=== PATIENT | female | born 1945 | race Caucasian/White ===

== ENCOUNTER 2016-10-23 03:56 | Emergency (ER) | payer OTHER, MEDICARE ==
[~2016-10-23] VITALS: Ht 162.6 cm; Wt 58.2 kg
[~2016-10-23 03:56] MED LIST: ACIDOPHILUS100 MG; AMBIEN10 MG PO; ASPIR 8181 M1 PO; ASPIR-TRIN325 M1 PO; BENICAR HCT 201 EACH PO; BENICAR HCT1 TABLE2 PO; BENICAR20 MG PO; BIOTIN5 MG; BUDEPRION SR100 MG PO; CARDURA2 M1 G-TUBE; CENTRUM CARD1 TABLET PO; CIPRO500 MG PO; COLACE50 MG PO; COZAAR100 MG PO; Cardura PO; DILAUDID4 MG PO; FLAGYL500 MG PO; FLORASTOR250 MG PO; HYDROCODON-ACE1 EAC8 PO; HYZAAR 100-21 TABLET PO; LEVAQUIN500 MG PO; LIDODERM 5% P1 PATCH TP; LIPITOR20 MG PO; LOPRESSOR25 MG PO; LORTAB,VICODIN15 ML PO; NASONEX17 GM NS; NITROQUICK0.4 MG SL; NITROSTAT,NITR0.4 M1 SL; PERCOCET 10-651 EACH PO; PERCOCET 10/1 TABLE1 PO; PLAVIX75 MG PO; PREVACID30 MG PO; PROMETHAZINE HC25 M1 PO; PROTONIX40 MG PO; ST. JOSEPH ASPI81 MG PO; TOPROL XL100 MG PO; TOPROL XL50 MG PO; VIT C; WELLBUTRIN100 MG PO; Wellbutrin SR PO; XANAX0.5 MG PO; Xanax PO
[2016-10-23 04:33] LABS: HEMATOCRIT 37.1 % (36.0-46.0); MCH 29.9 PG (29.0-34.0); MCHC 32.6 G/DL (30.0-36.0); MCV 91.6 FL (83-99); MEAN PLAT.VOLUME 9.2 uM^3 (9.5-12.4); PLATELET COUNT 277 K/uL (156-360); RBC DIS.WIDTH-SD 40.9 % (39-53); RED BLOOD COUNT 4.05 M/uL (3.80-5.20); WHITE BLOOD COUNT 6.9 K/uL (4.1-10.2)
[2016-10-23 04:43] LABS: CHLORIDE 102 mEq/L (99-109); POTASSIUM 4.4 mEq/L (3.7-5.4); SODIUM 139 mEq/L (136-147)
[2016-10-23 04:45] LABS: GLUCOSE 125 mg/dL (70-99)
[2016-10-23 04:46] LABS: ANION GAP 9 MEQ/L (2-14)
[2016-10-23 04:49] LABS: GFR ESTIMATE (CALCULATED) 47 mL/min/
[2016-10-23 04:50] LABS: UREA NITROGEN (BUN) 18 mg/dL (9-23)
[2016-10-23 04:56] LABS: TROP-I INTERPRETATION NEGATIVE; TROPONIN-I < 0.01 ng/mL (0.0-0.30)
[2016-10-23 05:57] LABS: INTER. NORMALIZED RATIO 1.1; PROTHROMBIN TIME 10.8 (9.2-11.2); PTT 25.9 (25-32)
[2016-10-23 06:02] LABS: TOTAL BILIRUBIN 0.3 mg/dL (0.0-1.0)
[2016-10-23 06:03] LABS: ALKALINE PHOSPHATASE 73 IU/L (3-129)
[2016-10-23 06:06] LABS: DIRECT BILIRUBIN 0.1 mg/dL (0.0-0.3)
[2016-10-23 06:07] LABS: LIPASE 35 U/L (1.0-51.0)
[2016-10-23] MEDS ORDERED: ALPRAZOLAM0.5 MG PO (06:12)
[2016-10-23 06:35] VITALS: BP 193/93
== END 2016-10-23 06:35 | disposition left against medical advice (07) ==
LOC: EME 03:56
DX: I16.0 Hypertensive urgency (principal); R07.89 Other chest pain; F41.9 Anxiety disorder, unspecified; I10 Essential (primary) hypertension; E78.5 Hyperlipidemia, unspecified; Z79.82 Long term (current) use of aspirin; R51 Headache; R11.0 Nausea
CPT/HCPCS: 70450; 71020; 80048; 80076; 83690; 84484; 85027; 85610; 85730; 93005; 99281; 99284

== ENCOUNTER → 2017-05-23 | Outpatient (CLI) | payer OTHER, MEDICARE ==
[~2017-05-23] MED LIST changes: +ALPRAZOLAM0.5 MG PO; +CENTRUM COMPLE1 EACH PO; +NEXIUM40 MG PO; +OXYCONTIN30 MG PO
== END | disposition home or self-care (01) ==
LOC: AMB 04-19 12:30
PROC: 0HB1XZZ Excision of Face Skin, External Approach (ICD-10-PCS; principal; 2017-05-23)
DX: C44.321 Squamous cell carcinoma of skin of nose (principal)
CPT/HCPCS: 88305

== ENCOUNTER 2017-06-25 02:57 | Emergency (ER) | payer OTHER, MEDICARE ==
[~2017-06-25] VITALS: Ht 162.6 cm; Wt 58.8 kg
[2017-06-25 04:35] LABS: CHLORIDE 99 mEq/L (99-109); POTASSIUM 3.7 mEq/L (3.7-5.4); SODIUM 136 mEq/L (136-147)
[2017-06-25 04:36] LABS: GLUCOSE 106 mg/dL (70-99)
[2017-06-25 04:40] LABS: CREATININE 1.2 mg/dL (0.6-1.3); GFR ESTIMATE (CALCULATED) 47 mL/min/
[2017-06-25 04:41] LABS: UREA NITROGEN (BUN) 33 mg/dL (9-23)
[2017-06-25 04:44] LABS: HEMATOCRIT 34.5 % (36.0-46.0); HEMOGLOBIN 11.3 G/DL (11.9-15.5); MCHC 32.8 G/DL (30.0-36.0); MCV 91.5 FL (83-99); PLATELET COUNT 215 K/uL (156-360); RBC DIS.WIDTH-CV 12.1 % (11.8-14.6); RBC DIS.WIDTH-SD 40.6 % (39-53); RED BLOOD COUNT 3.77 M/uL (3.80-5.20); TROP-I INTERPRETATION NEGATIVE; TROPONIN-I < 0.01 ng/mL (0.0-0.30); WHITE BLOOD COUNT 4.2 K/uL (4.1-10.2)
[2017-06-25 05:26] VITALS: BP 112/58
== END 2017-06-25 05:27 | disposition home or self-care (01) ==
LOC: EME 02:57
PROVIDERS: Emergency Medicine
DX: J06.9 Acute upper respiratory infection, unspecified (principal); J44.9 Chronic obstructive pulmonary disease, unspecified; Z87.891 Personal history of nicotine dependence; E78.5 Hyperlipidemia, unspecified; I25.2 Old myocardial infarction; I10 Essential (primary) hypertension; F41.9 Anxiety disorder, unspecified; Z85.3 Personal history of malignant neoplasm of breast; K21.9 Gastro-esophageal reflux disease without esophagitis; F32.9 Major depressive disorder, single episode, unspecified; M79.7 Fibromyalgia; Z86.73 Personal history of transient ischemic attack (TIA), and cerebral infarction without residual deficits; Z79.82 Long term (current) use of aspirin; Z88.0 Allergy status to penicillin; Z88.5 Allergy status to narcotic agent; Z88.6 Allergy status to analgesic agent
CPT/HCPCS: 71046; 80048; 83735; 84484; 85027; 93005; 94640; 99281; 99284

== ENCOUNTER 2017-08-22 03:33 | Emergency (ER) | payer OTHER, MEDICARE ==
[~2017-08-22] VITALS: Ht 162.6 cm; Wt 59.6 kg
[2017-08-22 03:41] VITALS: BP 183/89
== END 2017-08-22 03:51 | disposition left against medical advice (07) ==
LOC: EME 03:33
DX: G47.00 Insomnia, unspecified (principal); R51 Headache; H93.13 Tinnitus, bilateral; I10 Essential (primary) hypertension; Z53.21 Procedure and treatment not carried out due to patient leaving prior to being seen by health care provider
CPT/HCPCS: 93005

== ENCOUNTER 2017-11-28 22:08 | Emergency (ER) | payer OTHER, MEDICARE ==
[~2017-11-28] VITALS: Ht 165.1 cm; Wt 61.0 kg
[2017-11-29] MEDS ORDERED: NORCO 5/3251 TABLET PO (00:25)
[2017-11-29 00:37] VITALS: BP 208/98
== END 2017-11-29 00:38 | disposition home or self-care (01) ==
LOC: EME 22:08
DX: M79.605 Pain in left leg (principal); M54.32 Sciatica, left side; I10 Essential (primary) hypertension; M79.7 Fibromyalgia; K21.9 Gastro-esophageal reflux disease without esophagitis; E78.5 Hyperlipidemia, unspecified; J44.9 Chronic obstructive pulmonary disease, unspecified; F32.9 Major depressive disorder, single episode, unspecified; F41.9 Anxiety disorder, unspecified; I25.2 Old myocardial infarction; Z85.3 Personal history of malignant neoplasm of breast; Z86.73 Personal history of transient ischemic attack (TIA), and cerebral infarction without residual deficits; Z90.710 Acquired absence of both cervix and uterus; Z79.82 Long term (current) use of aspirin; Z88.6 Allergy status to analgesic agent; Z88.0 Allergy status to penicillin; Z88.5 Allergy status to narcotic agent; Z91.041 Radiographic dye allergy status
CPT/HCPCS: 93971; 99281; 99284

== ENCOUNTER 2017-12-12 21:35 | Inpatient (IN) | payer OTHER, MEDICARE ==
[~2017-12-12] VITALS: Ht 162.6 cm; Wt 56.9 kg
[~2017-12-12 21:35] MED LIST changes: -BIOTIN5 MG; +BIOTIN5 MG PO; +LOPRESSOR50 MG PO; +NORCO 5/3251 TABLET PO; -OXYCONTIN30 MG PO; +OXYCONTIN60 MG PO
[2017-12-12 22:51] LABS: APPEARANCE SL.HAZY ((CLEAR)); BILIRUBIN NEGATIVE; BLOOD MODERATE; COLOR YELLOW ((YELLOW)); GLUCOSE (STRIP) NEGATIVE; KETONES NEGATIVE; LEUKOCYTES LARGE; NITRITE POSITIVE; PROTEIN (STRIP) 30; SPECIFIC GRAVITY 1.012 (1.000-1.030)
[2017-12-12 22:54] LABS: BASOPHIL (%) 0.4 % (0-1); EOSINOPHIL (%) 0.3 % (0-5); HEMATOCRIT 33.1 % (36.0-46.0); HEMOGLOBIN 11.3 G/DL (11.9-15.5); IMMATURE GRANULOCYTE (%) 0.5 % (0.0-0.7); LYMPHOCYTE (%) 5.5 % (15-42); LYMPHOCYTE COUNT 0.5 K/uL (1.0-2.8); MCHC 34.1 G/DL (30.0-36.0); MCV 87.8 FL (83-99); MONOCYTE (%) 9.4 % (3-12); MONOCYTE COUNT 0.9 K/uL (0-0.8); NEUTROPHIL (%) 83.9 % (45-76); NEUTROPHIL COUNT 8.1 K/uL (1.8-6.4); PLATELET COUNT 215 K/uL (156-360); RBC DIS.WIDTH-CV 11.9 % (11.8-14.6); RBC DIS.WIDTH-SD 38.7 % (39-53); RED BLOOD COUNT 3.77 M/uL (3.80-5.20); WHITE BLOOD COUNT 9.6 K/uL (4.1-10.2)
[2017-12-12 23:00] LABS: BACTERIA RARE /HPF; EPITHELIAL CELLS RARE /HPF; HYALINE CASTS 0-5 /LPF; MUCUS TRACE /LPF; RED BLOOD CELLS 15-20 /HPF (0-5); UCUL ADDED? YES; WHITE BLOOD CELLS TNTC /HPF (0-5)
[2017-12-12 23:10] LABS: CHLORIDE 93 mEq/L (99-109); POTASSIUM 3.6 mEq/L (3.7-5.4); SODIUM 130 mEq/L (136-147)
[2017-12-12 23:11] LABS: GLUCOSE 108 mg/dL (70-99)
[2017-12-12 23:15] LABS: CREATININE 1.3 mg/dL (0.6-1.3); GFR ESTIMATE (CALCULATED) 43 mL/min/
[2017-12-12 23:16] LABS: UREA NITROGEN (BUN) 26 mg/dL (9-23)
[2017-12-13 04:04] LABS: MAGNESIUM 1.8 mg/dL (1.3-2.7)
[2017-12-13 05:01] VITALS: BP 124/59
[2017-12-13 07:18] VITALS: BP 174/70
[2017-12-13 08:48] LABS: CHLORIDE 104 MEQ/L (99-109); POTASSIUM 4.1 MEQ/L (3.7-5.4); SODIUM 136 MEQ/L (136-147)
[2017-12-13 08:54] LABS: CREATININE 0.9 MG/DL (0.6-1.3); GFR ESTIMATE (CALCULATED) > 59 mL/min/; GLUCOSE 110 mg/dL (70-99); UREA NITROGEN (BUN) 19 mg/dL (9-23)
[2017-12-13 09:11] LABS: BASOPHIL (%) 0.3 % (0-1); EOSINOPHIL (%) 0.9 % (0-5); EOSINOPHIL COUNT 0.1 K/uL (0-0.3); HEMATOCRIT 31.8 % (36.0-46.0); HEMOGLOBIN 10.7 G/DL (11.9-15.5); IMMATURE GRANULOCYTE (%) 0.6 % (0.0-0.7); LYMPHOCYTE (%) 4.4 % (15-42); LYMPHOCYTE COUNT 0.3 K/uL (1.0-2.8); MCH 29.6 PG (29.0-34.0); MCHC 33.6 G/DL (30.0-36.0); MCV 87.8 FL (83-99); MONOCYTE (%) 9.6 % (3-12); MONOCYTE COUNT 0.7 K/uL (0-0.8); NEUTROPHIL (%) 84.2 % (45-76); NEUTROPHIL COUNT 5.8 K/uL (1.8-6.4); PLATELET COUNT 185 K/uL (156-360); RBC DIS.WIDTH-CV 11.9 % (11.8-14.6); RBC DIS.WIDTH-SD 38.8 % (39-53); RED BLOOD COUNT 3.62 M/uL (3.80-5.20); WHITE BLOOD COUNT 6.9 K/uL (4.1-10.2)
[2017-12-13 11:08] VITALS: BP 113/57
[2017-12-13] MEDS ORDERED: ALPRAZOLAM0.5 MG PO (12:19)
[2017-12-13] MEDS ORDERED: OXYCODONE HCL30 MG PO (12:21)
[2017-12-13 16:34] VITALS: BP 119/58
[2017-12-13 20:01] VITALS: BP 119/65
[2017-12-14 06:16] LABS: HEMATOCRIT 28.8 % (36.0-46.0); HEMOGLOBIN 9.7 G/DL (11.9-15.5); MCH 29.8 PG (29.0-34.0); MCHC 33.7 G/DL (30.0-36.0); MCV 88.3 FL (83-99); PLATELET COUNT 182 K/uL (156-360); RBC DIS.WIDTH-CV 12.1 % (11.8-14.6); RBC DIS.WIDTH-SD 39.3 % (39-53); RED BLOOD COUNT 3.26 M/uL (3.80-5.20)
[2017-12-14 07:00] LABS: CHLORIDE 105 MEQ/L (99-109); CREATININE 0.8 MG/DL (0.6-1.3); GFR ESTIMATE (CALCULATED) > 59 mL/min/; GLUCOSE 116 mg/dL (70-99); POTASSIUM 3.8 MEQ/L (3.7-5.4); SODIUM 134 MEQ/L (136-147); UREA NITROGEN (BUN) 13 mg/dL (9-23)
[2017-12-14 16:09] VITALS: BP 174/81
[2017-12-14 18:52] VITALS: BP 141/63
[2017-12-15 00:45] VITALS: BP 150/65
[2017-12-15 08:31] VITALS: BP 116/72
[2017-12-15] MEDS ORDERED: CEFDINIR300 MG PO (09:26)
== END 2017-12-15 10:19 | disposition home or self-care (01) | DRG 690 ==
LOC: EME 21:35 → 2EASTP 12-13 02:58 → EDOF 12-13 02:58 → ENRESERV 12-13 02:59 → CANRESERV 12-13 02:59 → ENRESERV 12-13 03:17 → 2EASTP 12-13 03:59
PROVIDERS: Emergency Medicine; Internal Medicine; Physician Assistant
DX: N10 Acute pyelonephritis (principal); B96.20 Unspecified Escherichia coli [E. coli] as the cause of diseases classified elsewhere; E87.1 Hypo-osmolality and hyponatremia; E87.6 Hypokalemia; I10 Essential (primary) hypertension; D64.9 Anemia, unspecified; E78.5 Hyperlipidemia, unspecified; I25.10 Atherosclerotic heart disease of native coronary artery without angina pectoris; J44.9 Chronic obstructive pulmonary disease, unspecified; K21.9 Gastro-esophageal reflux disease without esophagitis; M79.7 Fibromyalgia; M47.9 Spondylosis, unspecified; G89.29 Other chronic pain; I25.2 Old myocardial infarction; F32.9 Major depressive disorder, single episode, unspecified; F41.9 Anxiety disorder, unspecified; Z86.73 Personal history of transient ischemic attack (TIA), and cerebral infarction without residual deficits; Z86.61 Personal history of infections of the central nervous system; Z87.891 Personal history of nicotine dependence; Z85.3 Personal history of malignant neoplasm of breast; Z90.711 Acquired absence of uterus with remaining cervical stump; Z95.5 Presence of coronary angioplasty implant and graft; Z79.891 Long term (current) use of opiate analgesic; Z79.82 Long term (current) use of aspirin
CPT/HCPCS: 71045; 74176; 80048; 81003; 83605; 83735; 85025; 85027; 87040; 87077; 87086; 87186; 99281; 99285; J0360; J0692; J0696; J1644; J2405; J3010; J3480; J7030